=== PATIENT | male | born 1995 | race Caucasian/White ===

== ENCOUNTER 2018-05-09 14:54 | Inpatient (IN) | payer OTHER ==
[~2018-05-09] VITALS: Ht 175.3 cm; Wt 61.2 kg
[2018-05-09 15:34] VITALS: Ht 175.3 cm; Wt 61.2 kg
--- NOTE | 2018-05-09 15:36 | NUR ---
ORIGINAL 5150 ONTAINED BY MEDIC AND PLACED IN PT'S CHART. DIAMANTE WARREN AT BEDSIDE FROM [facility].
--- NOTE | 2018-05-09 15:50 | NUR ---
PER ADULT KISHAN WARREN AT BEDSIDE PT FELT DIZZY/SICK @ 30 MINUTES PRIOR TO FALL.NOW ASLEEP ON ER # 14 HOB @ 30 DEGREES SR UP,O2 SAT MONITOR ON AT 97%,79 HR.AWAITS er md evaluations/assessments.also per kishan no one saw pt actually hit his head with something during fall.also pt ativan was given by med nurse of facility prior to arrival.
--- NOTE | 2018-05-09 16:42 | NUR ---
IV ACCESS STARTED ASEPTICALLY,ivf started.pt tolerated procedures with no incidents.liliana adult female sitter at bedside.awaits test results,reevaluations.back to sleep,nad.
[2018-05-09 16:56] LABS: BASOPHIL % 0.7 % (0-2); PLATELET COUNT 294 x10^3mcL (130-400)
[2018-05-09 17:10] LABS: CALCIUM 8.8 mg/dL (8.5-10.1); CARBON DIOXIDE 28.2 mmol/L (21-32); CHLORIDE SERUM 103 mmol/L (98-107); CREATININE SERUM 1.1 mg/dL (0.7-1.3); GFR1 > 60 mL/min; GLUCOSE SERUM 102 mg/dL (74-106); POTASSIUM SERUM 3.8 mmol/L (3.5-5.1); SODIUM SERUM 142 mmol/L (136-145)
[2018-05-09 17:13] LABS: ALBUMIN 3.8 g/dL (3.4-5.0); ALKALINE PHOSPHATASE 77 U/L (46-116); ALT/SGPT 169 U/L (16-63); AST/SGOT 157 U/L (15-37); BILIRUBIN TOTAL 0.82 mg/dL (0.20-1.00); CHOLESTEROL 161 mg/dL (<200); PHOSPHOROUS 4.8 mg/dL (2.5-4.9); TOTAL PROTEIN, SERUM 7.5 g/dL (6.4-8.2); URIC ACID 4.9 mg/dL (3.5-7.2)
[2018-05-09 17:15] LABS: HDL CHOLESTEROL 94 mg/dL (40-60)
--- NOTE | 2018-05-09 17:26 | NUR ---
ivf fibnished.pt tolerated procedures with no incidents.liliana adult female sitter bedside.pt asleeep on er # 14 hob @ 30 degrees sr up,nad.awaits reevaluations.
--- NOTE | 2018-05-09 18:09 | NUR ---
PT AWAKENED FOR 2ND LITER NS BAG START OF INFUSION.DIAMANTE WARREN,ADULT female at bedside.nad.awaits reevaluations.
--- NOTE | 2018-05-09 19:03 | NUR ---
P[T ENDORSED TO/ACCEPTED BY CONTRERAS MENA.
[2018-05-09 19:31] LABS: microscopic required? NO
--- NOTE | 2018-05-09 20:02 | NUR ---
2ND IV STARTED IN THE R AC FOR SODIUM BICARB ADMINISTRATION RUNNING AT 125MLS/HR.
[2018-05-09] MEDS ORDERED: ATIVAN0.5 M1 PO (20:04)
--- NOTE | 2018-05-09 20:20 | NUR ---
PT OFF THE FLOOR FOR CT.
--- NOTE | 2018-05-09 20:32 | NUR ---
REPORT GIVEN TO RAHEL MENA TO ASSUME CARE OF PT.
[2018-05-09 20:35] LABS: AMPHETAMINE QUAL UR NONE DETECTED (See below)
[2018-05-09 21:13] VITALS: BP 134/90
--- NOTE | 2018-05-09 21:30 | NUR ---
RECIEVED PT FROM ED VIA ELIJAH. PT ALERT AND ORIENTED WITH PARANOID DELUSIONS. PT TEARFUL AT TIMES. PT ORIENTED TO ROOM. PT DENIES CHEST PAIN. PT IN NO CURRENT DISTRESS. PT FATHER IBETH RICO CALLED AND SPOKE WITH PT.
[2018-05-09 22:12] LABS: UA SPECIFIC GRAVITY 1.015 (1.005-1.035); urine erythrocyte NEGATIVE (NEGATIVE)
--- NOTE | 2018-05-10 01:18 | NUR ---
PT COMPLAINING OF ANXIETY. DR GUERIN MADE AWARE. DR GUERIN AT BED SIDE. PT STATES "I'M LEAVING , I NEED TO GO HOME." PT DEMANDS IV SITES BE OUT AND AND CONTINUES TO GET OUT OF BED. PT MADE AWARE OF THE HOLD. IVS REMOVED PER DR. GUERIN.SECURITY NOTIFIED. JULIETTE RÍOS NOTIFIED. PT LEFT AMA ON FOOT. FATHER IBETH RICO NOTIFIED PER PT'S REQUEST. FELT FINISHER MADE AWARE.
--- NOTE | 2018-05-10 01:42 | NUR ---
JULIETTE PD IN LOBBY WITH PT. INFORMED PT THAT [facility] IS NOT CLEARED TO LEAVE HOSPITAL. PT ESCORTED BACK TO ROOM BY SECURITY AND RAJESH ANDRADE. WILL CONTINUE TO MONITOR.
--- NOTE | 2018-05-10 05:58 | NUR ---
PT RESTING IN BED WITH EYES CLOSED. EASILY AROUSABLE BY VERBAL STIMULI. NO S/SX OF DISTRESS NOTED. BREATHING EVEN AND UNLABORED. CALL LIGHT WITHIN REACH. WILL ENDORSE CARE TO ON COMING SHIFT.
[2018-05-10 07:02] LABS: BASOPHIL % 0.8 % (0-2); PLATELET COUNT 283 x10^3mcL (130-400); RED CELL DISTRIBUTION WIDTH 14.3 % (11.5-14.5)
[2018-05-10 07:05] VITALS: BP 96/55
--- NOTE | 2018-05-10 07:05 | NUR ---
RECEIVED PT FROM ENZO RN, PT FOUND RESTING IN BED WITH BOTH EYES CLOSED. NO S/S OF ACUTE DISTRESS. NO SOB ON ROOM AIR. NO CHEST PAIN. NSR WITH ELEVATED T WAVE ON TELE, HR 71. NO SOB ON ROOM AIR. RR EVEN/UNLABORED. VS STABLE. HR 68, RR 20, BP 96/55 (72), O2 SAT 99%. NO IV ACCESS PT REFUSES IV THERAPY. [address] FALL PREC IN PLACE. NO S/S OF PAIN. PT CALM AT THIS TIME. BED IN LOW POSITION. CALL LIGHT WITHIN REACH. WILL CONTINUE TO MONITOR.
[2018-05-10 07:10] LABS: CALCIUM 8.3 mg/dL (8.5-10.1); CARBON DIOXIDE 29.9 mmol/L (21-32); CHLORIDE SERUM 108 mmol/L (98-107); GFR1 > 60 mL/min; GLUCOSE SERUM 94 mg/dL (74-106); POTASSIUM SERUM 4.3 mmol/L (3.5-5.1); SODIUM SERUM 144 mmol/L (136-145)
[2018-05-10 07:38] LABS: BILIRUBIN DIRECT 0.25 mg/dL (0.0-0.2); BILIRUBIN TOTAL 0.94 mg/dL (0.20-1.00); TOTAL PROTEIN, SERUM 6.5 g/dL (6.4-8.2)
[2018-05-10 07:39] LABS: ALBUMIN 3.3 g/dL (3.4-5.0)
--- NOTE | 2018-05-10 07:45 | NUR ---
PT WATCHING TELEVISION, STATES, "THEY'RE TALKING ABOUT ME" POINTS TO TELEVISION. LAUGHS. MOMENTS LATER PT STARTS CRYING, STATES, "I'M JUST REMEMBERING WHEN MY GRANDMA ." PT NOW RESTING IN BED WITH BOTH EYES CLOSED. SITTER AT BEDSIDE. WILL CONT. TO MONITOR.
--- NOTE | 2018-05-10 10:25 | NUR ---
LATE ENTRY: PT AGITATED, ANXIOUS. PUNCHING AIR. CRYING SPONTANEOUSLY. MOOD CHANGES FREQUENTLY. PT STATES, "I JUST WANT TO LEAVE, I'M GOING TO LEAVE. REMOVE THE IV." IV REMOVED PER PT REQUEST. PT ANXIOUS, GIVEN PO MEDICATION FOR ANXIETY. PT CONTINUE TO CHANGE INTO HOME CLOTHES. PT AMBUATED IN HALLWAYS LOOKING FOR EXIT. PT CONTINUED TO LEAVE AGAINST ADVICE. JULIETTE RÍOS CONTACTED. GUARD LIEUTENANT MAKAYLA SOLIMAN. DR. DOUGLAS AND DR. BAEZA OF ALL ABOVE MENTIONED.
--- NOTE | 2018-05-10 10:43 | NUR ---
PT RETURNED BACK TO ROOM, ESCORTED BY POLICE. CALM/COOPERATIVE AT THIS TIME. REFUSES IV THERAPY. NO IV ACCESS. AA/OX4. NO S/S OF ACUTE DISTRESS. USED RESTROOM, VOIDS FREELY. RETURNED TO BED, LAYING COMFORTABLY. BED IN LOW POSITION. CALL LIGHT WITHIN REACH. WILL CONT. TO MONITOR.
--- NOTE | 2018-05-10 10:53 | NUR ---
NSR ON TELE. HR 98. NO CHEST PAIN. NO SOB ON ROOM AIR. SKIN WARM, DRY, INTACT. AA/OX4. DELUSIONAL AT TIMES.
--- NOTE | 2018-05-10 12:15 | NUR ---
PT RESTING IN BED WITH BOTH EYES CLOSED. NO S/S OF ACUTE DISTRESS. NO SOB ON ROOM AIR. NO CHEST PAIN. NO ABD. PAIN. NO N/V. NO FEVER. NO CHILLS. CALM AT THIS TIME. NO IV ACCESS. REFUSES IV THERAPY. PT IN ROOM CLOSE TO NURSES STATION. WILL CONT. TO MONITOR.
[2018-05-10 13:15] VITALS: BP 122/79
[2018-05-10 14:00] VITALS: BP 114/64
--- NOTE | 2018-05-10 14:05 | NUR ---
PT ANXIOUS, GIVEN IV MEDICATION FOR ANXIETY. SEE MAR. NO S/S OF ACUTE DISTRESS. VS STABLE. NO SOB ON ROOM AIR. RR EVEN/UNLABORED. NO CHEST PAIN. IV WNL TO RFA, NO REDNESS, NO SWELLING, NO INFILTRATION. PATENT AND FLUSHES WELL. IV FLUIDS FLOWING. NSR ON TELE. SITTER AT BEDSIDE. BED IN LOW POSITION. CALL LIGHT WITHIN REACH. WILL CONT. TO MONITOR.
--- NOTE | 2018-05-10 15:11 | NUR ---
PT LAYING IN BED. AA/OX4. NO S/S OF ACUTE DISTRESS. CALM/COOPERATIVE AT THIS TIME. NO SOB ON ROOM AIR. NO COMPLAINT OF PAIN. IV WNL TO RFA, IV FLUIDS FLOWING. SITTER AT BEDSIDE. BED IN LOW POSITION. CALL LIGHT WITHIN REACH. WILL CONT. TO MONITOR.
--- NOTE | 2018-05-10 15:23 | NUR ---
PT AMBULATED TO RESTROOM, GAIT STEADY. VOID X1. NO S/S OF ACUTE DISTRESS. NO CONRAD. NO DIZZINESS. CALM/COOPERATIVE AT THIS TIME. TALKING TO MOTHER ON ROOM TELEPHONE. NO SOB ON ROOM AIR. NO CHEST PAIN. IV WNL TO RFA, IV FLUIDS FLOWING. AA/OX4. SITTER AT BEDSIDE. BED IN LOW POSITION. CALL LIGHT WITHIN REACH. WILL CONT. TO MONITOR.
[2018-05-10 16:14] VITALS: BP 130/76
--- NOTE | 2018-05-10 16:31 | NUR ---
PT ANXIOUS, WANTS TO LEAVE AMA, DR. DOUGLAS TALKED TO PT AT BEDSIDE. PT AGREES TO CONTINUE IV THERAPY. PT GIVEN MEDICATION FOR ANXIETY. AGITATED. PARANOID, BELIEVES OTHERS ARE TRYING TO HARM HIM. SITTER AT BEDSIDE. IV WNL TO RFA, IV FLUIDS FLOWING. BED IN LOW POSITION. CALL LIGHT WITHIN REACH. WILL CONT. TO MONITOR.
--- NOTE | 2018-05-10 17:29 | NUR ---
FAMILY AT BEDSIDE TALKING TO PT. PT CALM/COOPERATIVE AT THIS TIME. NO S/S OF ACUTE DISTRESS. NO SOB ON ROOM AIR. NO COMPLAINT OF PAIN. IV WNL TO RFA, IV FLUIDS FLOWING. BED IN LOW POSITION. CALL LIGHT WITHIN REACH. WILL CONT. TO MONITOR.
--- NOTE | 2018-05-10 19:15 | NUR ---
PT SITTING IN BED. AA/OX4. NO S/S OF ACUTE DISTRESS. FAMILY AT BEDSIDE. CALM/COOPERATIVE. BED IN LOW POSITION. CALL LIGHT WITHIN REACH. ENDORSED TO NOC RNS SUNIL/JAMES. SITTER AT BEDSIDE.
--- NOTE | 2018-05-10 19:42 | NUR ---
RECEIVED PT FROM PREVIOUS SHIFT. PT A/OX4 AT THIS TIME. OCCASIONALLY DISORIENTED/PARANOID/DELUSIONAL. IV PATENT AND INFUSINF NS AT 125ML/HR WITH NO S/S OF INFILTRATION. PARENTS AT BEDSIDE. SITTER AT BEDSIDE. CALL LIGHT WITHIN REACH, BED IN LOW POSITION. WILL CONTINUE TO MONITOR.
[2018-05-10 20:55] VITALS: BP 103/48
[2018-05-11 04:50] VITALS: BP 104/49
[2018-05-11 07:26] LABS: BASOPHIL % 0.8 % (0-2); CALCIUM 8.5 mg/dL (8.5-10.1); CARBON DIOXIDE 30.6 mmol/L (21-32); CHLORIDE SERUM 107 mmol/L (98-107); CREATININE SERUM 0.9 mg/dL (0.7-1.3); GFR1 > 60 mL/min; GLUCOSE SERUM 88 mg/dL (74-106); PLATELET COUNT 239 x10^3mcL (130-400); POTASSIUM SERUM 3.8 mmol/L (3.5-5.1); RED CELL DISTRIBUTION WIDTH 13.9 % (11.5-14.5); SODIUM SERUM 143 mmol/L (136-145)
--- NOTE | 2018-05-11 07:30 | NUR ---
PATIENT RESTING IN BED, NO ACUTE DISTRESS NOTED. PATIENT ON ROOM AIR, TELE MONITOR IN PLACE. PATIENT DENIES PARANOIA, AND DELUSIONS AT THIS TIME. PATIENT DENIES ANXIETY AT THIS TIME. PATIENT IS CALM AND COOPERATIVE. MILD GENERALIZED WEAKNESS NOTED UPON AMBULATION. NS IV INFUSING TO RFA AT 125ML/HR, NO REDNESS, SWELLING OR PAIN NOTED. IV SITE PATENT AND INFUSING WELL. CALL LIGHT WITHIN REACH, BED IN LOW POSITION. WILL CONTINUE TO MONITOR.
[2018-05-11 09:05] VITALS: BP 123/50
[2018-05-11 12:33] VITALS: BP 122/69
--- NOTE | 2018-05-11 12:44 | NUR ---
PATIENT IS UP AND SITTING IN BED, PATIENT IS EATING WELL. PATIENT C/O A COUGH, MEDICATED PATIENT WITH RUBITUSSIN (SEE EMAR) PER PROTOCOL. PATIENT IS CALM, NO ACUTE DISTRESS NOTED. CALL LIGHT WITHIN REACH, BED IN LOW POSITION FOR SAFETY PRECAUTION. WILL CONTINUE TO MONITOR PATIENT.
--- NOTE | 2018-05-11 14:00 | NUR ---
PATIENT IS UP AND AMUBULATING HALLWAYS, STEADY GAIT NOTED, NO WEAKNESS NOTED. NO ACUTE DISTRESS NOTED. WILL CONTINUE TO MONITOR PATIENT.
--- NOTE | 2018-05-11 16:24 | NUR ---
PATIENT IS SITTING UP IN BED, NO ACUTE DISTRESS NOTED. PATIENT IS CALM, DENIES ANY PARANOIA, DELUSION. CALL LIGHT WITHIN REACH, BED IN LOW POSITION FOR SAFETY PRECAUTION. WILL CONTINUE TO MONITOR.
[2018-05-11 16:52] VITALS: BP 118/59
--- NOTE | 2018-05-11 18:53 | NUR ---
PATIENT RESTING IN BED, NO ACUTE DISTRESS THROUGH OUT SHIFT, PATIENT IS STABLE AT THIS TIME. PATIENT IS CALM AND COOPERATIVE. NS IV INFUSING TO RFA AT 125ML/HR. IV SITE CDI, NO REDNESS, SWELLING OR PAIN NOTED. CALL LIGHT WITHIN REACH, BED IN LOW POSITION, WILL ENDORSE REPORT TO NIGHT NURSE.
--- NOTE | 2018-05-11 19:10 | NUR ---
RECEIVED PT IN BED AAOX4. PT WERE ASKING TO DICONNECT THE IV ACCESS.EXPLAINED TO THE PT THE IMPORTANCE OF HAVING AN IV ACCESS AND TOLD THE PT TO MONITOR IF IT BOTHERS HIM.SPOKED TO THE FATHER OVER THE PHONE REGARDING HIS SON'S COMPLAIN.THE FATHER VERBALIZED UNDERSTANDING.IV SITE PATENT AND INTACT. BED IN LOWEST POSITION,CALL LIGHT WITHIN REACH. WILL CONTINUE TO MONITOR.
[2018-05-11 19:20] VITALS: BP 150/85
--- NOTE | 2018-05-12 04:52 | NUR ---
PT APPEARS TO BE SLEEPING. NO SOB NOTED. NO INDICATION OF PAIN.FATHER AT BEDSIDE.BED IN LOWEST POSITION,CALL LIGHT WITHIN REACH. WILL CONTINUE TO MONITOR.
[2018-05-12 05:41] VITALS: BP 119/68
[2018-05-12 07:14] LABS: CALCIUM 8.4 mg/dL (8.5-10.1); CARBON DIOXIDE 27.2 mmol/L (21-32); CHLORIDE SERUM 107 mmol/L (98-107); CREATININE SERUM 0.9 mg/dL (0.7-1.3); GFR1 > 60 mL/min; GLUCOSE SERUM 92 mg/dL (74-106); POTASSIUM SERUM 3.6 mmol/L (3.5-5.1); SODIUM SERUM 143 mmol/L (136-145)
--- NOTE | 2018-05-12 07:14 | NUR ---
CARE ENDORSED TO DAY NURSE
--- NOTE | 2018-05-12 07:15 | NUR ---
RECEIVED REPORT FROM SR. OPERATIONS MANAGER NURSE AT THIS TIME. PATIENT RESTING COMFORTABLY IN BED. FATHER AT BEDSIDE. NO APPARENT DISTRESS OR DISCOMFORT NOTED. BREATHING EVEN AND UNLABORED. NO RESPIRATORY DISTRESS NOTED. PATIENT DENIES CHEST PAIN AT THIS TIME. IV PATENT AND INTACT. ALL QUESTIONS AND CONCERNS ADDRESSED. ALL NEEDS ATTENDED TO. WILL CONTINUE TO MONITOR
[2018-05-12 07:18] LABS: BASOPHIL % 0.7 % (0-2); PLATELET COUNT 256 x10^3mcL (130-400); RED CELL DISTRIBUTION WIDTH 14.1 % (11.5-14.5)
[2018-05-12 09:01] VITALS: BP 126/73
--- NOTE | 2018-05-12 12:22 | NUR ---
1L BOLUS INITIATED AT THIS TIME. PATINT TOLERATED WELL. IV PATENT AND INTACT. ALL NEEDS ATTENDED TO. WILL CONTINUE TO MONITOR
--- NOTE | 2018-05-12 13:22 | NUR ---
1L BOLUS COMPLETED AT THIS TIME. NEW 1L BAG INFUSING AT 150ML/HR. IV PATENT AND INTACT. IV SITE FREE OF REDNESS OR SWELLING. NO APPARENT DISTRESS OR DISCOMFORT NOTED. ALL NEEDS ATTENDED TO. WILL CONTINUE TO MONITOR
[2018-05-12 17:08] VITALS: BP 127/70
--- NOTE | 2018-05-12 17:59 | NUR ---
PATIENT SITTING UP ON SIDE OF BED EATING DINNER AT THIS TIME. PATIENT TOLERATING DIET WELL. NO APPARENT DISTRESS OR DISCOMFORT NOTED. ALL NEEDS ATTENDED TO. WILL CONTINUE TO MONITOR
--- NOTE | 2018-05-12 18:50 | NUR ---
PATIENT RESTING COMFORTABLY IN BED AT THIS TIME. NO APPARENT DISTRESS OR DISCOMFORT NOTED. IV PATENT AND INTACT. ALL QUESTIONS AND CONCERNS ADDRESSED. SAFETY PRECAUTIONS MAINTAINED. ALL NEEDS ATTENDED TO. WILL ENDORSE ALL CARE TO CHEF DE PARTIE NURSE
--- NOTE | 2018-05-12 19:45 | NUR ---
RECEIVED REPORT FROM DAY SHIFT RN. PT RESTING IN BED. AA&O X4. NO SOB ON ROOM AIR. NO C/O PAIN. NO DISTRESS NOTED. IV TO LFA, NS INFUSING. SAFETY MEASURES IN PLACE. BED IN LOWEST POSITION. SIDE RAILS UP X2. INSTRUCTED PT TO USE THE CALL LIGHT FOR ASSISTANCE. CALL LIGHT WITHIN REACH.
--- NOTE | 2018-05-12 21:30 | NUR ---
PT TOOK A SHOWER. NO DISTRESS NOTED. RECONNECTED IV.
[2018-05-12 21:40] VITALS: BP 124/87
--- NOTE | 2018-05-13 03:50 | NUR ---
PT STANDING BY THE NURSES' STATION. ASKED PT IF HE WANTS ATIVAN FOR ANXIETY. PT REFUSED. PT STATES HE IS FEELING OKAY, JUST WANTED SOMEONE TO TALK TO.
[2018-05-13 05:20] VITALS: BP 130/80
--- NOTE | 2018-05-13 05:25 | NUR ---
PT STATES HE DOES NOT WANT THE IV FLUIDS. EXPLAINED TO THE PT THE PURPOSE AND IMPORTANCE OF THE IV FLUIDS. PT STILL REFUSING. 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 DISCONNECTED THE IV. DR LAN MADE AWARE.
--- NOTE | 2018-05-13 05:30 | NUR ---
PT CHANGED HIS MIND AND NOW WANTS THE IV FLUIDS. IV RECONNECTED. DR LAN AWARE. PT SITTING ON THE CHAIR OUTSIDE THE ROOM.
--- NOTE | 2018-05-13 06:39 | NUR ---
PT AMBULATED ALONG THE HALLWAY FREQUENTLY. PT REFUSED TO TAKE ANY MEDS. FREQUENT MOOD CHANGE BACK AND FORTH FROM CALM TO RESISTIVE THROUGHOUT SHIFT NOTED. PT IS BACK IN THE ROOM AT THIS TIME. NO SOB ON ROOM AIR. NO C/O PAIN. SAFETY MEASURES MAINTAINED. CALL LIGHT WITHIN REACH. WILL ENDORSE CONTINUITY OF CARE TO ONCOMING RN.
[2018-05-13 06:43] LABS: CALCIUM 9.3 mg/dL (8.5-10.1); CARBON DIOXIDE 26.5 mmol/L (21-32); CHLORIDE SERUM 106 mmol/L (98-107); CREATININE SERUM 0.9 mg/dL (0.7-1.3); GFR1 > 60 mL/min; GLUCOSE SERUM 105 mg/dL (74-106); POTASSIUM SERUM 3.5 mmol/L (3.5-5.1); SODIUM SERUM 143 mmol/L (136-145)
--- NOTE | 2018-05-13 07:15 | NUR ---
RECEIVED PT FROM [facility] RAJESH BISHOP. PT FOUND AMBULATING IN HALLWAYS. AA/OX4. NO S/S OF ACUTE DISTRESS. NO SOB ON ROOM AIR. IV WNL TO LFA, IV FLUIDS FLOWING. NO REDNESS, NO SWELLING, NO INFILTRATION. PATENT AND FLUSHES WELL. PT DENIES PAIN AT THIS TIME. WILL CONT. TO MONITOR.
--- NOTE | 2018-05-13 08:08 | NUR ---
PT ANXIOUS, PACING IN ROOM, RIPPING PAPERS, GIVEN IV MEDICATION FOR ANXIETY. PT HITTING SELF IN FACE. AGITATED. ASSISTED PT BACK TO BED. REFUSING IV FLUIDS AT THIS TIME. SALINE LOCKED. PT STATES, "I DON'T TRUST NOBODY." PT PARANOID AT THIS TIME. PT IN ROOM CLOSE TO NURSES STATION. IV WNL TO LFA, NO REDNESS, NO SWELLING, NO INFILTRATION. PATENT. FLUSHES WELL. SALINE LOCKED PER PT REQUEST. AA/OX4. NO SOB ON ROOM AIR. NO CHEST PAIN. MED-SURG. BED IN LOW POSITION. CALL LIGHT WITHIN REACH. WILL CONT. TO MONTIOR CLOSELY.
[2018-05-13 09:49] VITALS: BP 117/75
--- NOTE | 2018-05-13 10:09 | NUR ---
DR. GUERIN TALKING TO PATIENT AT BEDSIDE. PT APPEARS CALM/COOPERATIVE AT THIS TIME. RECEIVING IV BOLUS. IV WNL. NO REDNESS, NO SWELLING, NO INFILTRATION. PATENT AND FLUSHES WELL. AA/OX4. FOLLOWS COMPLEX COMMANDS, RESPONDING APPROPRAITELY TO VERBAL STIMULI. DR. GUERIN AWARE OF PT HITTING SELF IN FACE. BED IN LOW POSITION. CALL LIGHT WITHIN REACH. WILL CONT. TO MONITOR CLOSELY.
[2018-05-13 12:32] VITALS: BP 117/75
--- NOTE | 2018-05-13 13:37 | NUR ---
PT RESTING IN BED WITH BOTH EYES CLOSED. NO S/S OF ACUTE DISTRESS. NO SOB ON ROOM AIR. NO CHEST PAIN. CALM/COOPERATIVE AT THIS TIME. IV WNL TO LFA, IV FLUIDS FLOWING. BED IN LOW POSITION. CALL LIGHT WITHIN REACH. WILL CONT. TO MONITOR.
[2018-05-13] MEDS ORDERED: HYDROXYZINE HYD25 MG PO (14:00)
--- NOTE | 2018-05-13 14:43 | NUR ---
PT AMBULATORY TO RESTROOM, GAIT STEADY. VOID X1. SITTING AT SIDE OF BED EATING LUNCH. NO S/S OF ACUTE DISTRESS. NO SOB ON ROOM AIR. NO CHEST PAIN. CALM/COOPERATIVE AT THIS TIME. BED IN LOW POSITION. CALL LIGHT WITHIN REACH. WILL CONT. TO MONITOR.
[2018-05-13 16:30] VITALS: BP 130/63
--- NOTE | 2018-05-13 16:34 | NUR ---
PT REMOVED IV FROM LFA, NO REDNESS, NO SWELLING, NO INFILTRATION. CATHETER IN TACT. PRESSURE APPLIED. NO IV ACCESS, REFUSES IV. WAITING FOR FAMILY FOR DISCHARGE. PT IN ROOM CLOSE TO NURSES STATION. WILL CONT. TO MONITOR CLOSELY.
--- NOTE | 2018-05-13 16:50 | NUR ---
PT CRYING IN HALLWAYS, AMBULATING IN HALLWAYS, PT REFUSES TO DISCUSS REASON FOR CRYING. ASSISTED PT BACK TO ROOM. PT APPEARS TO BE MORE CALM AT THIS TIME. DR. GUERIN AWARE OF PT BEHAVIOR. PT NOW SITTING AT SIDE OF BED. WILL CONT. TO MONITOR.
--- NOTE | 2018-05-13 18:13 | NUR ---
PT AMBULATING IN HALLWAYS, AA/OX4. NO S/S OF ACUTE DISTRESS. NO SOB ON ROOM AIR. CALM/COOPERATIVE AT THIS TIME STANDING BY NURSES STATION. NO IV ACCESS. PT WAITING FOR MOTHER/FATHER FOR DISCHARGE. WILL ENDORSE TO ONCOMING SHIFT.
--- NOTE | 2018-05-13 18:40 | NUR ---
PT DISCHARGED TO HOME. AWAKE, ALERT, ORIENTED X4. NO S/S OF ACUTE DISTRESS. CALM/COOPERATIVE. DENIES PAIN. NO N/V. NO CONRAD. NO DIZZINESS. NO SOB ON ROOM AIR. NO CHEST PAIN. DISCHARGE EDUCATION PROVIDED TO PATIENT AND MOTHER, INSTRUCTED TO FOLLOW UP WITH PCP, PT HAS APPT WITHIN ONE WEEK, CONFIRMED BY MOTHER. PT AND MOTHER VERBALIZED UNDERSTANDING OF DISCHARGE EDUCATION. PRESCRIPTION PROVIDED TO PATIENT. BELONGINGS WITH PATIENT. AMBULATORY TO [facility], TAKEN BY LIBIA NICOLE. GAIT STEADY.
== END 2018-05-13 18:40 | disposition home or self-care (01) | DRG 74 ==
LOC: ED 14:54 → MU 19:05 → DU 19:05 → MU 05-11 13:58
PROVIDERS: Emergency Medicine; ADMIT Internal Medicine
DX: G90.9 Disorder of the autonomic nervous system, unspecified (principal); F23 Brief psychotic disorder; M62.82 Rhabdomyolysis; R74.0 Nonspecific elevation of levels of transaminase and lactic acid dehydrogenase [LDH]; F12.10 Cannabis abuse, uncomplicated; Z88.8 Allergy status to other drugs, medicaments and biological substances; F17.210 Nicotine dependence, cigarettes, uncomplicated
CPT/HCPCS: G0480; J2060; J3490; J7030; Q0092